=== PATIENT | male | born 1965 | race Caucasian/White ===

== ENCOUNTER → 2022-10-12 | Outpatient (CLI) | payer BC ==
[~2022-10-12] MED LIST: EXCETAB32 PO; LOSA25TA13 PO; PANT40TA29 PO
== END ==
LOC: M LABSMTC 09:02
PROVIDERS: ATTEND Anesthesiology
DX: Z01.818 Encounter for other preprocedural examination (principal)

== ENCOUNTER 2022-10-15 07:34 | Day surgery (SDC) | payer BC ==
[~2022-10-15] VITALS: Ht 175.3 cm; Wt 107.0 kg
[~2022-10-15 07:34] MED LIST changes: +NS 1,000 ML IV ONE
[2022-10-15] MEDS ORDERED: LIDOCAINE 2% 100MG/5ML SDV (FOR ANES.) As Ordered ONE (08:25)
[2022-10-15] MEDS ORDERED: propofoL 200 MG/20 ML VIAL As Ordered ONE ×3 (08:25→08:59)
[2022-10-15 09:40] VITALS: BP 126/74
== END 2022-10-15 09:52 | disposition home or self-care (01) ==
LOC: M OPP 07:34
PROVIDERS: ATTEND Internal Medicine Gastroenterology
DX: Z12.11 Encounter for screening for malignant neoplasm of colon (principal); Z80.0 Family history of malignant neoplasm of digestive organs; D12.6 Benign neoplasm of colon, unspecified; K57.30 Diverticulosis of large intestine without perforation or abscess without bleeding; K64.4 Residual hemorrhoidal skin tags; K64.8 Other hemorrhoids; K44.9 Diaphragmatic hernia without obstruction or gangrene; K22.89 Other specified disease of esophagus; K29.70 Gastritis, unspecified, without bleeding; K20.0 Eosinophilic esophagitis; Z79.1 Long term (current) use of non-steroidal anti-inflammatories (NSAID); Z79.899 Other long term (current) drug therapy; Z88.0 Allergy status to penicillin; Z88.7 Allergy status to serum and vaccine; Z88.8 Allergy status to other drugs, medicaments and biological substances; Z91.030 Bee allergy status; Z91.041 Radiographic dye allergy status; I10 Essential (primary) hypertension; G43.909 Migraine, unspecified, not intractable, without status migrainosus; R13.10 Dysphagia, unspecified

== ENCOUNTER → 2022-12-30 | Outpatient (CLI) | payer BC ==
[~2022-12-30] MED LIST changes: -NS 1,000 ML IV ONE
== END ==
LOC: M RAD 18:15
PROVIDERS: ATTEND Registered Nurse
DX: R06.2 Wheezing (principal)